=== PATIENT | female | born 1935 | race Two or more races ===

== ENCOUNTER → 2016-08-26 | Outpatient (CLI) | payer MEDICARE, OTHER ==
[~2016-08-26] VITALS: Ht 147.3 cm; Wt 72.0 kg
[~2016-08-26] MED LIST: AMIO200T44 PO; AMLO-511 PO; APIX2.5T PO; ATOR10TA84 PO; CHOL2000 PO; DABI75CA3 PO; DONE10TA PO; FERR-89 PO; LEVO75 PO; OMEP20TA86 PO; SERT50TA12 PO; SOLI5 PO
[2016-08-26 09:53] VITALS: BP 120/68
== END | disposition home or self-care (01) ==
LOC: SRCNTR 09:41
PROVIDERS: ATTEND Internal Medicine Cardiovascular Disease
DX: I12.9 Hypertensive chronic kidney disease with stage 1 through stage 4 chronic kidney disease, or unspecified chronic kidney disease (principal); N18.3 Chronic kidney disease, stage 3 (moderate); I48.0 Paroxysmal atrial fibrillation; E78.5 Hyperlipidemia, unspecified; G24.01 Drug induced subacute dyskinesia
CPT/HCPCS: G0463

== ENCOUNTER → 2016-10-25 | Outpatient (CLI) | payer MEDICARE, OTHER ==
[~2016-10-25] VITALS: Ht 147.3 cm; Wt 71.0 kg
[~2016-10-25] MED LIST changes: -FERR-89 PO; +FERS325 PO
[2016-10-25 11:06] VITALS: BP 100/55
== END | disposition home or self-care (01) ==
LOC: SRCNTR 10:39
PROVIDERS: ATTEND Internal Medicine Cardiovascular Disease
DX: I12.9 Hypertensive chronic kidney disease with stage 1 through stage 4 chronic kidney disease, or unspecified chronic kidney disease (principal); N18.3 Chronic kidney disease, stage 3 (moderate); I48.0 Paroxysmal atrial fibrillation; E78.5 Hyperlipidemia, unspecified; G24.01 Drug induced subacute dyskinesia
CPT/HCPCS: 93005; G0463

== ENCOUNTER 2017-06-19 07:28 | Inpatient (IN) | payer MEDICARE, OTHER ==
[~2017-06-19] VITALS: Ht 154.9 cm; Wt 67.1 kg
[~2017-06-19 07:28] MED LIST changes: -DABI75CA3 PO; -DONE10TA PO; +DONE10TA8 PO; +FERR-89 PO; -FERS325 PO; +OMEP20TA25 PO; -OMEP20TA86 PO
[2017-06-19] MEDS ORDERED: ATOR10TA69 PO (07:38)
[2017-06-19] MEDS ORDERED: PANT40TA PO (07:38)
[2017-06-19] MEDS ORDERED: MEMA7CAP PO (07:38)
[2017-06-19] MEDS ORDERED: FUROSEMIDE 40 MG/4 ML VIAL IVP ONE (08:45)
[2017-06-19 08:56] LABS: ANION GAP 10 mmol/L (8-16); CALCIUM, TOTAL 8.4 mg/dL (8.8-10.5); CARBON DIOXIDE 26 mmol/L (22-29); CHLORIDE 104 mmol/L (98-107); CREATININE 1.28 mg/dL (0.60-1.30); GLOMERULAR FILTR. RATE CALC 40 mL/min (>60); GLUCOSE,RANDOM 129 mg/dL (70-110); POTASSIUM 4.1 mmol/L (3.5-5.1); SODIUM SERUM 140 mmol/L (136-145); UREA NITROGEN, BLOOD 28 mg/dL (7-18)
[2017-06-19 08:56] LABS: INR 1.1 (0.9-1.1); PROTHROMBIN TIME 11.7 SEC (9.4-11.6)
[2017-06-19 09:03] LABS: ALANINE AMINOTRANSFERASE 14 U/L (12-78); ALBUMIN 2.4 g/dL (3.4-5.0); ALKALINE PHOSPHATASE 107 U/L (46-116); ASPARTATE AMINOTRANSFERASE 26 U/L (15-37); BILIRUBIN,TOTAL 0.7 mg/dL (0.1-1.0); CREATINE KINASE, TOTAL 24 U/L (26-192); TOTAL PROTEIN, SERUM 6.5 g/dL (6.4-8.2)
[2017-06-19 09:05] LABS: EOSINOPHILS % (AUTO) 0.6 % (1.0-6.0); HEMATOCRIT 31.4 % (36-46); HEMOGLOBIN 10.6 g/dL (12.0-16.0); LYMPHOCYTES # (AUTO) 0.4 K/uL (1.0-4.8); LYMPHOCYTES % (AUTO) 2.9 % (22.0-44.0); MEAN CORPUSCULAR HEMOGLOBIN 34.2 pg (26.0-34.0); MEAN CORPUSCULAR HGB CONC 33.8 G/dL (31.0-37.0); MEAN CORPUSCULAR VOLUME 101 fL (80-100); MONOCYTES # (AUTO) 0.3 K/uL (0.1-1.0); MONOCYTES % (AUTO) 2.7 % (2.0-9.0); NEUTROPHILS # (AUTO) 11.9 K/uL (1.8-7.7); PLATELET COUNT (AUTO) 332 K/uL (150-450); RED CELL DISTRIBUTION WIDTH 15.7 % (11.5-14.5)
[2017-06-19 09:09] LABS: NEUTROPHILS % (AUTO) 93.8 % (40.0-70.0)
[2017-06-19] MEDS: NITROGLYCERIN 0.4 MG SUBLINGUAL TABLET #25 SL ONE ×2 (09:09→09:45)
[2017-06-19] MEDS: NITROGLYCERIN 2% (1 GM=INCH) PACKET TP ONE ×2 (09:10→09:45)
[2017-06-19 09:17] LABS: INFLUENZA TYPE A NEGATIVE FOR TYPE A (NEGATIVE); INFLUENZA TYPE B NEGATIVE FOR TYPE B (NEGATIVE)
[2017-06-19 09:38] LABS: B-TYPE NATRIURETIC PEPTIDE 797 pg/mL (0-100)
[2017-06-19] MEDS ORDERED: 0.9% SODIUM CHLORIDE 10 ML SYRINGE IVP PRN (10:15)
[2017-06-19] MEDS ORDERED: ONDANSETRON HCL 4 MG/2 ML VIAL IVP PRN ×2 (10:15→15:00)
[2017-06-19] MEDS ORDERED: ACETAMINOPHEN 325 MG TABLET PO PRN ×2 (10:15→15:00)
[2017-06-19] MEDS ORDERED: AZITHROMYCIN 500 MG/NS 250 ML IV ONE (10:15)
[2017-06-19] MEDS ORDERED: CefTRIAXone 1 GM/DEXTROSE 50 ML IV ONE (10:15)
[2017-06-19] MEDS ORDERED: ACETAMINOPHEN 325 MG TABLET PO ONE (10:30)
[2017-06-19] MEDS ORDERED: IOVERSOL 350 MG/ML 100 ML VIAL ONE (10:49)
[2017-06-19 11:11] LABS: APPEARANCE,URINE CLEAR (CLEAR); BILIRUBIN,URINE NEGATIVE (NEGATIVE); GLUCOSE, URINE (UA) NEGATIVE (NEGATIVE); KETONES,URINE NEGATIVE (NEGATIVE); LEUKOCYTE ESTERASE ,URINE NEGATIVE (NEGATIVE); NITRATE,URINE NEGATIVE (NEGATIVE); OCCULT BLOOD,URINE NEGATIVE (NEGATIVE); PH,URINE 6.5 (5.0-8.0); PROTEIN,URINE NEGATIVE (NEGATIVE)
[2017-06-19 12:45] LABS: ABG A-A DIFF O2 451.1 mmHg (10-20.0); ABG BASE EXCESS 0.8 mmol/L (-2.0-3.0); ABG CARBOXYHEMOGLOBIN 1.3 % (0.0-1.5); ABG HCO3 25.4 mmol/L (22.0-26.0); ABG METHEMOGLOBIN 0.3 % (0.0-1.5); ABG OXYGEN CONTENT 15.1 mL/dL (15.0-23.0); ABG OXYGEN SATURATION 99.7 % (95.0-98.0); ABG OXYHEMOGLOBIN 98.1 % (94.0-100.0); ABG PCO2 38 mmHg (35-45); ABG PH 7.434 (7.35-7.450); ABG TOTAL HEMOGLOBIN 10.6 G/dL (12.0-18.0); O2 DEVICE,BLOOD GAS NON REBREATHER (ROOM AIR); PO2, ARTERIAL BG 221.3 mmHg (71.0-79.0); SITE, BLOOD GAS RT RADIAL; SOURCE, BLOOD GAS ARTERIAL; TEMPERATURE, FAHRENHEIT, BG 100.3 FAHREN (96.0-98.6)
[2017-06-19 14:53] VITALS: BP 116/63
[2017-06-19] MEDS ORDERED: BISACODYL 10 MG RECTAL RECTAL SUPPOSITORY PR PRN (15:00)
[2017-06-19] MEDS ORDERED: ZOLPIDEM TARTRATE 5 MG TABLET PO PRN (15:00)
[2017-06-19] MEDS ORDERED: HYDROCODONE/ACETAMINOPHEN 5-325 MG TABLET PO PRN (15:00)
[2017-06-19] MEDS ORDERED: MAGNESIUM HYDROXIDE SUSPENSION 30 ML UDCUP PO PRN (15:00)
[2017-06-19] MEDS ORDERED: MORPHINE SULFATE 2 MG/ML SYRINGE IVP PRN (15:00)
[2017-06-19 19:42] VITALS: BP 133/63
[2017-06-19] MEDS: DOCUSATE SODIUM 100 MG CAPSULE PO SCH (20:34)
[2017-06-19] MEDS: APIXABAN 2.5 MG TABLET PO SCH (20:34)
[2017-06-19] MEDS: FUROSEMIDE 20 MG/2 ML VIAL IVP SCH (20:34)
[2017-06-19 23:47] VITALS: BP 121/48
[2017-06-20 04:43] VITALS: BP 101/54
[2017-06-20] MEDS: LEVOTHYROXINE SODIUM 75 MCG TABLET PO SCH (06:02)
[2017-06-20 07:27] VITALS: BP 114/49
[2017-06-20 07:58] LABS: EOSINOPHILS % (AUTO) 1.3 % (1.0-6.0); HEMATOCRIT 30.9 % (36-46); HEMOGLOBIN 10.1 g/dL (12.0-16.0); LYMPHOCYTES # (AUTO) 0.7 K/uL (1.0-4.8); MEAN CORPUSCULAR HEMOGLOBIN 33.5 pg (26.0-34.0); MEAN CORPUSCULAR HGB CONC 32.7 G/dL (31.0-37.0); MEAN CORPUSCULAR VOLUME 103 fL (80-100); MONOCYTES # (AUTO) 0.3 K/uL (0.1-1.0); MONOCYTES % (AUTO) 2.2 % (2.0-9.0); NEUTROPHILS # (AUTO) 11.2 K/uL (1.8-7.7); PLATELET COUNT (AUTO) 318 K/uL (150-450); RED BLOOD CELL COUNT(AUTO) 3.01 MIL/uL (4.00-5.20); RED CELL DISTRIBUTION WIDTH 15.5 % (11.5-14.5)
[2017-06-20 07:59] LABS: NEUTROPHILS % (AUTO) 90.5 % (40.0-70.0)
[2017-06-20 08:22] LABS: BILIRUBIN,TOTAL 0.6 mg/dL (0.1-1.0); CALCIUM, TOTAL 8.5 mg/dL (8.8-10.5); CREATININE 1.32 mg/dL (0.60-1.30); POTASSIUM 3.8 mmol/L (3.5-5.1); TOTAL PROTEIN, SERUM 5.9 g/dL (6.4-8.2)
[2017-06-20] MEDS: DOCUSATE SODIUM 100 MG CAPSULE PO SCH ×2 (08:58→20:51)
[2017-06-20] MEDS: DONEPEZIL HCL 10 MG TABLET PO SCH (08:58)
[2017-06-20] MEDS: PANTOPRAZOLE SODIUM 40 MG DR TABLET PO SCH (08:58)
[2017-06-20] MEDS: SERTRALINE HCL 50 MG TABLET PO SCH (08:58)
[2017-06-20] MEDS: CHOLECALCIFEROL (VIT D3) 2,000 UNITS TABLET PO SCH (08:58)
[2017-06-20] MEDS: APIXABAN 2.5 MG TABLET PO SCH ×2 (08:58→20:51)
[2017-06-20] MEDS: ASPIRIN 81 MG EC TABLET PO SCH (08:58)
[2017-06-20] MEDS: FUROSEMIDE 20 MG/2 ML VIAL IVP SCH ×2 (08:59→20:51)
[2017-06-20] MEDS: ATORVASTATIN CALCIUM 10 MG TABLET PO SCH (08:59)
[2017-06-20] MEDS: AMIODARONE HCL 200 MG TABLET PO SCH (08:59)
[2017-06-20] MEDS ORDERED: ATORVASTATIN CALCIUM 10 MG TABLET PO SCH (09:00)
[2017-06-20] MEDS ORDERED: MEMANTINE HCL 7 MG PO SCH (09:00)
[2017-06-20] MEDS ORDERED: LISINOPRIL 5 MG TABLET PO SCH (09:00)
[2017-06-20] MEDS ORDERED: *CLINICAL-LEVOFLOXACIN ORAL DOSING CLINICAL ONE (09:30)
[2017-06-20] MEDS: OXYGEN THERAPY IH SCH ×3 (09:53→20:51)
[2017-06-20] MEDS: LEVOFLOXACIN 750 MG/D5% WATER 150 ML IV SCH (10:43)
[2017-06-20 11:15] VITALS: BP 106/50
[2017-06-20 15:59] VITALS: BP 104/51
[2017-06-20 19:36] VITALS: BP 107/50
[2017-06-20 23:25] VITALS: BP 107/57
[2017-06-21 04:56] VITALS: BP 111/77
[2017-06-21] MEDS: LEVOTHYROXINE SODIUM 75 MCG TABLET PO SCH (06:04)
[2017-06-21 07:40] VITALS: BP 106/43
[2017-06-21] MEDS: OXYGEN THERAPY IH SCH ×4 (08:00→20:04)
[2017-06-21] MEDS: AMIODARONE HCL 200 MG TABLET PO SCH (08:20)
[2017-06-21] MEDS: FUROSEMIDE 20 MG/2 ML VIAL IVP SCH ×2 (08:20→20:03)
[2017-06-21] MEDS: DONEPEZIL HCL 10 MG TABLET PO SCH (08:20)
[2017-06-21] MEDS: DOCUSATE SODIUM 100 MG CAPSULE PO SCH ×2 (08:20→20:04)
[2017-06-21] MEDS: PANTOPRAZOLE SODIUM 40 MG DR TABLET PO SCH (08:20)
[2017-06-21] MEDS: ASPIRIN 81 MG EC TABLET PO SCH (08:20)
[2017-06-21] MEDS: APIXABAN 2.5 MG TABLET PO SCH ×2 (08:20→20:04)
[2017-06-21] MEDS: SERTRALINE HCL 50 MG TABLET PO SCH (08:20)
[2017-06-21] MEDS: ATORVASTATIN CALCIUM 10 MG TABLET PO SCH (08:20)
[2017-06-21] MEDS: CHOLECALCIFEROL (VIT D3) 2,000 UNITS TABLET PO SCH (08:20)
[2017-06-21 09:28] LABS: CALCIUM, TOTAL 8.2 mg/dL (8.8-10.5); CREATININE 1.39 mg/dL (0.60-1.30); POTASSIUM 3.6 mmol/L (3.5-5.1)
[2017-06-21] MEDS ORDERED: LEVALBUTEROL HCL 0.63 MG/3 ML NEB SOLUTION NEB PRN (09:30)
[2017-06-21 09:34] LABS: ABG A-A DIFF O2 481.5 mmHg (10-20.0); ABG BASE EXCESS 1.6 mmol/L (-2.0-3.0); ABG CARBOXYHEMOGLOBIN 0.8 % (0.0-1.5); ABG HCO3 25.4 mmol/L (22.0-26.0); ABG METHEMOGLOBIN 0.2 % (0.0-1.5); ABG OXYGEN CONTENT 12.9 mL/dL (15.0-23.0); ABG OXYHEMOGLOBIN 79.1 % (94.0-100.0); ABG PCO2 42 mmHg (35-45); ABG PH 7.413 (7.35-7.450); ABG TOTAL HEMOGLOBIN 11.6 G/dL (12.0-18.0); PO2, ARTERIAL BG 45.3 mmHg (71.0-79.0); SOURCE, BLOOD GAS ARTERIAL; TEMPERATURE, FAHRENHEIT, BG 98.3 FAHREN (96.0-98.6)
[2017-06-21 09:35] LABS: ABG OXYGEN SATURATION 79.9 % (95.0-98.0); O2 DEVICE,BLOOD GAS NON REBREATHER (ROOM AIR); SITE, BLOOD GAS RT RADIAL
[2017-06-21 11:14] VITALS: BP 112/58
[2017-06-21 11:23] LABS: ABG A-A DIFF O2 584.7 mmHg (10-20.0); ABG BASE EXCESS 2.3 mmol/L (-2.0-3.0); ABG CARBOXYHEMOGLOBIN 0.6 % (0.0-1.5); ABG HCO3 26.5 mmol/L (22.0-26.0); ABG METHEMOGLOBIN 0.3 % (0.0-1.5); ABG OXYGEN CONTENT 15.2 mL/dL (15.0-23.0); ABG OXYGEN SATURATION 97.4 % (95.0-98.0); ABG OXYHEMOGLOBIN 96.5 % (94.0-100.0); ABG PCO2 38 mmHg (35-45); ABG PH 7.458 (7.35-7.450); ABG TOTAL HEMOGLOBIN 11.1 G/dL (12.0-18.0); PO2, ARTERIAL BG 91.6 mmHg (71.0-79.0); SOURCE, BLOOD GAS ARTERIAL; TEMPERATURE, FAHRENHEIT, BG 97.9 FAHREN (96.0-98.6)
[2017-06-21 11:24] LABS: O2 DEVICE,BLOOD GAS BIPAP (ROOM AIR); SITE, BLOOD GAS RT RADIAL
[2017-06-21 16:21] VITALS: BP 101/60
[2017-06-21 20:02] VITALS: BP 138/63
[2017-06-21 20:06] VITALS: BP 113/57
[2017-06-22 03:51] VITALS: BP 104/50
[2017-06-22] MEDS: LEVOTHYROXINE SODIUM 75 MCG TABLET PO SCH (06:35)
[2017-06-22 07:15] VITALS: BP 132/53
[2017-06-22] MEDS: OXYGEN THERAPY IH SCH ×4 (08:00→19:54)
[2017-06-22 08:26] LABS: BASOPHILS % (AUTO) 0.3 % (0.0-2.0); HEMATOCRIT 29.8 % (36-46); HEMOGLOBIN 9.8 g/dL (12.0-16.0); LYMPHOCYTES # (AUTO) 0.5 K/uL (1.0-4.8); LYMPHOCYTES % (AUTO) 4.4 % (22.0-44.0); MEAN CORPUSCULAR HEMOGLOBIN 33.4 pg (26.0-34.0); MEAN CORPUSCULAR HGB CONC 32.8 G/dL (31.0-37.0); MEAN CORPUSCULAR VOLUME 102 fL (80-100); MONOCYTES # (AUTO) 0.3 K/uL (0.1-1.0); MONOCYTES % (AUTO) 2.9 % (2.0-9.0); NEUTROPHILS # (AUTO) 10.3 K/uL (1.8-7.7); PLATELET COUNT (AUTO) 338 K/uL (150-450); RED BLOOD CELL COUNT(AUTO) 2.93 MIL/uL (4.00-5.20)
[2017-06-22] MEDS: FUROSEMIDE 20 MG/2 ML VIAL IVP SCH ×2 (08:29→21:14)
[2017-06-22 08:30] LABS: NEUTROPHILS % (AUTO) 89.4 % (40.0-70.0)
[2017-06-22] MEDS: PANTOPRAZOLE SODIUM 40 MG DR TABLET PO SCH (08:30)
[2017-06-22] MEDS: DOCUSATE SODIUM 100 MG CAPSULE PO SCH ×2 (08:30→21:13)
[2017-06-22] MEDS: ATORVASTATIN CALCIUM 10 MG TABLET PO SCH (08:30)
[2017-06-22] MEDS: AMIODARONE HCL 200 MG TABLET PO SCH (08:30)
[2017-06-22] MEDS: ASPIRIN 81 MG EC TABLET PO SCH (08:30)
[2017-06-22 08:42] LABS: ANION GAP 7 mmol/L (8-16); CALCIUM, TOTAL 8.4 mg/dL (8.8-10.5); CARBON DIOXIDE 31 mmol/L (22-29); CHLORIDE 101 mmol/L (98-107); CREATINE KINASE, TOTAL 15 U/L (26-192); CREATININE 1.37 mg/dL (0.60-1.30); GLOMERULAR FILTR. RATE CALC 37 mL/min (>60); GLUCOSE,RANDOM 89 mg/dL (70-110); PLATELET MORPHOLOGY COMMENT GIANT PLTS PRESENT; POTASSIUM 3.9 mmol/L (3.5-5.1); SODIUM SERUM 139 mmol/L (136-145); UREA NITROGEN, BLOOD 34 mg/dL (7-18)
[2017-06-22 08:54] LABS: B-TYPE NATRIURETIC PEPTIDE 332 pg/mL (0-100)
[2017-06-22] MEDS: LEVOFLOXACIN 750 MG/D5% WATER 150 ML IV SCH (10:11)
[2017-06-22] MEDS: SERTRALINE HCL 50 MG TABLET PO SCH (10:43)
[2017-06-22] MEDS: APIXABAN 2.5 MG TABLET PO SCH ×2 (10:43→21:22)
[2017-06-22] MEDS: CHOLECALCIFEROL (VIT D3) 2,000 UNITS TABLET PO SCH (10:43)
[2017-06-22] MEDS: DONEPEZIL HCL 10 MG TABLET PO SCH (10:44)
[2017-06-22 11:34] VITALS: BP 113/55
[2017-06-22 16:00] VITALS: BP 111/51
[2017-06-22 22:35] VITALS: BP 101/50
[2017-06-23] VITALS: BP 102/47
[2017-06-23 04:00] VITALS: BP 101/49
[2017-06-23 05:18] LABS: BASOPHILS # (AUTO) 0.01 K/uL (0.00-0.20); BASOPHILS % (AUTO) 0.1 % (0.0-2.0); EOSINOPHILS # (AUTO) 0.35 K/uL (0.00-0.70); EOSINOPHILS % (AUTO) 3.69 % (1.0-6.0); HEMATOCRIT 30.1 % (36-46); HEMOGLOBIN 9.7 g/dL (12.0-16.0); LYMPHOCYTES # (AUTO) 0.4 K/uL (1.0-4.8); LYMPHOCYTES % (AUTO) 4.5 % (22.0-44.0); MEAN CORPUSCULAR HEMOGLOBIN 32.6 pg (26.0-34.0); MEAN CORPUSCULAR HGB CONC 32.2 G/dL (31.0-37.0); MEAN CORPUSCULAR VOLUME 101 fL (80-100); MONOCYTES # (AUTO) 0.3 K/uL (0.1-1.0); MONOCYTES % (AUTO) 3.4 % (2.0-9.0); NEUTROPHILS # (AUTO) 8.5 K/uL (1.8-7.7); PLATELET COUNT (AUTO) 337 K/uL (150-450); RED BLOOD CELL COUNT(AUTO) 2.98 MIL/uL (4.00-5.20); RED CELL DISTRIBUTION WIDTH 16.1 % (11.5-14.5)
[2017-06-23 05:22] LABS: NEUTROPHILS % (AUTO) 88.3 % (40.0-70.0)
[2017-06-23 05:26] LABS: ALBUMIN 1.7 g/dL (3.4-5.0); BILIRUBIN,TOTAL 0.6 mg/dL (0.1-1.0); CALCIUM, TOTAL 8.4 mg/dL (8.8-10.5); CREATININE 1.34 mg/dL (0.60-1.30); POTASSIUM 3.9 mmol/L (3.5-5.1); TOTAL PROTEIN, SERUM 5.7 g/dL (6.4-8.2)
[2017-06-23 06:38] LABS: PLATELET MORPHOLOGY COMMENT GIANT PLTS PRESENT
[2017-06-23] MEDS: LEVOTHYROXINE SODIUM 75 MCG TABLET PO SCH (06:47)
[2017-06-23 08:00] VITALS: BP 106/50
[2017-06-23] MEDS: FUROSEMIDE 20 MG/2 ML VIAL IVP SCH ×2 (08:56→21:38)
[2017-06-23] MEDS: DOCUSATE SODIUM 100 MG CAPSULE PO SCH ×2 (08:57→21:38)
[2017-06-23] MEDS: APIXABAN 2.5 MG TABLET PO SCH ×2 (08:57→21:38)
[2017-06-23] MEDS: SERTRALINE HCL 50 MG TABLET PO SCH (08:57)
[2017-06-23] MEDS: CHOLECALCIFEROL (VIT D3) 2,000 UNITS TABLET PO SCH (08:57)
[2017-06-23] MEDS: DONEPEZIL HCL 10 MG TABLET PO SCH (08:57)
[2017-06-23] MEDS: ASPIRIN 81 MG EC TABLET PO SCH (08:57)
[2017-06-23] MEDS: AMIODARONE HCL 200 MG TABLET PO SCH (08:58)
[2017-06-23] MEDS: PANTOPRAZOLE SODIUM 40 MG DR TABLET PO SCH (08:58)
[2017-06-23] MEDS: OXYGEN THERAPY IH SCH ×4 (08:58→21:39)
[2017-06-23] MEDS: ATORVASTATIN CALCIUM 10 MG TABLET PO SCH (09:00)
[2017-06-23 09:15] LABS: ABG A-A DIFF O2 454.9 mmHg (10-20.0); ABG BASE EXCESS 7.7 mmol/L (-2.0-3.0); ABG HCO3 30.4 mmol/L (22.0-26.0); ABG METHEMOGLOBIN 0.2 % (0.0-1.5); ABG OXYGEN CONTENT 13.5 mL/dL (15.0-23.0); ABG OXYGEN SATURATION 91.2 % (95.0-98.0); ABG OXYHEMOGLOBIN 90.1 % (94.0-100.0); ABG PCO2 51 mmHg (35-45); ABG PH 7.422 (7.35-7.450); ABG TOTAL HEMOGLOBIN 10.6 G/dL (12.0-18.0); O2 DEVICE,BLOOD GAS BIPAP (ROOM AIR); PO2, ARTERIAL BG 61.7 mmHg (71.0-79.0); SITE, BLOOD GAS RT BRACHIAL; SOURCE, BLOOD GAS ARTERIAL; TEMPERATURE, FAHRENHEIT, BG 99.4 FAHREN (96.0-98.6)
[2017-06-23 12:00] VITALS: BP 101/51
[2017-06-23] MEDS ORDERED: SODIUM CHLORIDE 0.9% 500 ML IV ONE (14:27)
[2017-06-23 16:00] VITALS: BP 111/53
[2017-06-23 20:00] VITALS: BP 105/50
[2017-06-24] VITALS (8 sets, daily range): BP systolic 99–120; BP diastolic 40–62
[2017-06-24 05:57] LABS: BASOPHILS % (AUTO) 0.7 % (0.0-2.0); EOSINOPHILS % (AUTO) 4.3 % (1.0-6.0); HEMATOCRIT 30.5 % (36-46); LYMPHOCYTES # (AUTO) 0.7 K/uL (1.0-4.8); LYMPHOCYTES % (AUTO) 6.8 % (22.0-44.0); MEAN CORPUSCULAR HGB CONC 32.7 G/dL (31.0-37.0); MEAN CORPUSCULAR VOLUME 101 fL (80-100); MONOCYTES # (AUTO) 0.3 K/uL (0.1-1.0); MONOCYTES % (AUTO) 3.2 % (2.0-9.0); PLATELET COUNT (AUTO) 366 K/uL (150-450); RED BLOOD CELL COUNT(AUTO) 3.02 MIL/uL (4.00-5.20); RED CELL DISTRIBUTION WIDTH 15.9 % (11.5-14.5)
[2017-06-24 06:21] LABS: CALCIUM, TOTAL 8.6 mg/dL (8.8-10.5); CREATININE 1.4 mg/dL (0.60-1.30); POTASSIUM 3.9 mmol/L (3.5-5.1)
[2017-06-24] MEDS: LEVOTHYROXINE SODIUM 75 MCG TABLET PO SCH (06:21)
[2017-06-24] MEDS: OXYGEN THERAPY IH SCH ×4 (07:37→21:16)
[2017-06-24] MEDS: ASPIRIN 81 MG EC TABLET PO SCH (08:04)
[2017-06-24] MEDS: DOCUSATE SODIUM 100 MG CAPSULE PO SCH ×2 (08:04→21:16)
[2017-06-24] MEDS: FUROSEMIDE 20 MG/2 ML VIAL IVP SCH ×2 (08:04→21:16)
[2017-06-24] MEDS: DONEPEZIL HCL 10 MG TABLET PO SCH (08:04)
[2017-06-24] MEDS: CHOLECALCIFEROL (VIT D3) 2,000 UNITS TABLET PO SCH (08:05)
[2017-06-24] MEDS: AMIODARONE HCL 200 MG TABLET PO SCH (08:05)
[2017-06-24] MEDS: PANTOPRAZOLE SODIUM 40 MG DR TABLET PO SCH (08:05)
[2017-06-24] MEDS: ATORVASTATIN CALCIUM 10 MG TABLET PO SCH (08:05)
[2017-06-24] MEDS: SERTRALINE HCL 50 MG TABLET PO SCH (08:05)
[2017-06-24] MEDS: APIXABAN 2.5 MG TABLET PO SCH ×2 (08:06→21:16)
[2017-06-24] MEDS: LEVOFLOXACIN 750 MG/D5% WATER 150 ML IV SCH (10:08)
[2017-06-24 18:04] LABS: CREATININE,URINE RANDOM 76.6 mg/dL (30.0-125.0)
[2017-06-25 04:40] VITALS: BP 104/53
[2017-06-25] MEDS: LEVOTHYROXINE SODIUM 75 MCG TABLET PO SCH (05:07)
[2017-06-25 07:16] VITALS: BP 114/46
[2017-06-25] MEDS: OXYGEN THERAPY IH SCH ×4 (08:00→20:02)
[2017-06-25 08:59] LABS: CALCIUM, TOTAL 8.7 mg/dL (8.8-10.5); CREATININE 1.39 mg/dL (0.60-1.30)
[2017-06-25] MEDS: ASPIRIN 81 MG EC TABLET PO SCH (10:00)
[2017-06-25] MEDS: PANTOPRAZOLE SODIUM 40 MG DR TABLET PO SCH (10:00)
[2017-06-25] MEDS: DOCUSATE SODIUM 100 MG CAPSULE PO SCH ×2 (10:00→20:01)
[2017-06-25] MEDS: DONEPEZIL HCL 10 MG TABLET PO SCH (10:00)
[2017-06-25] MEDS: APIXABAN 2.5 MG TABLET PO SCH ×2 (10:00→20:01)
[2017-06-25] MEDS: AMIODARONE HCL 200 MG TABLET PO SCH (10:00)
[2017-06-25] MEDS: ATORVASTATIN CALCIUM 10 MG TABLET PO SCH (10:00)
[2017-06-25] MEDS: FUROSEMIDE 20 MG/2 ML VIAL IVP SCH ×2 (10:01→20:03)
[2017-06-25] MEDS: SERTRALINE HCL 50 MG TABLET PO SCH (10:01)
[2017-06-25] MEDS: CHOLECALCIFEROL (VIT D3) 2,000 UNITS TABLET PO SCH (10:01)
[2017-06-25 11:19] VITALS: BP 108/43
[2017-06-25 15:06] VITALS: BP 117/50
[2017-06-25] MEDS: MethylPREDNISolone SOD SUCC 40 MG/ML VIAL IVP SCH (18:28)
[2017-06-25 19:47] VITALS: BP 109/49
[2017-06-26] MEDS: MethylPREDNISolone SOD SUCC 40 MG/ML VIAL IVP SCH ×2 (00:33→05:31)
[2017-06-26 00:42] VITALS: BP 127/58
[2017-06-26 05:06] VITALS: BP 123/68
[2017-06-26] MEDS: LEVOTHYROXINE SODIUM 75 MCG TABLET PO SCH (05:31)
[2017-06-26 07:48] LABS: CALCIUM, TOTAL 8.7 mg/dL (8.8-10.5); CREATININE 1.42 mg/dL (0.60-1.30); MAGNESIUM 2.5 mg/dL (1.80-2.40); PHOSPHORUS 3.1 mg/dL (2.5-4.9); POTASSIUM 4.9 mmol/L (3.5-5.1)
[2017-06-26] MEDS: OXYGEN THERAPY IH SCH ×4 (08:00→20:57)
[2017-06-26 08:06] VITALS: BP 108/57
[2017-06-26] MEDS: ASPIRIN 81 MG EC TABLET PO SCH (10:17)
[2017-06-26] MEDS: FUROSEMIDE 20 MG/2 ML VIAL IVP SCH (10:17)
[2017-06-26] MEDS: ATORVASTATIN CALCIUM 10 MG TABLET PO SCH (10:17)
[2017-06-26] MEDS: LEVOFLOXACIN 750 MG/D5% WATER 150 ML IV SCH (10:17)
[2017-06-26] MEDS: PANTOPRAZOLE SODIUM 40 MG DR TABLET PO SCH (10:17)
[2017-06-26] MEDS: APIXABAN 2.5 MG TABLET PO SCH (10:17)
[2017-06-26] MEDS: CHOLECALCIFEROL (VIT D3) 2,000 UNITS TABLET PO SCH (10:17)
[2017-06-26] MEDS ORDERED: LORazepam 2 MG/ML VIAL IVP PRN (11:00)
[2017-06-26] MEDS ORDERED: MORPHINE SULFATE 2 MG/ML SYRINGE IVP PRN (11:00)
[2017-06-26 11:19] VITALS: BP 111/42
[2017-06-26 16:06] VITALS: BP 120/50
[2017-06-26] MEDS ORDERED: GLYCOPYRROLATE 0.2 MG/ML VIAL IVP PRN (16:30)
[2017-06-26] MEDS: MORPHINE SULFATE 2 MG/ML SYRINGE IVP SCH ×3 (16:59→23:56)
[2017-06-26 19:29] VITALS: BP 108/43
[2017-06-27] VITALS (7 sets, daily range): BP systolic 91–103; BP diastolic 35–51
[2017-06-27] MEDS: MORPHINE SULFATE 2 MG/ML SYRINGE IVP SCH ×6 (03:46→23:36)
[2017-06-27] MEDS: OXYGEN THERAPY IH SCH (08:43)
[2017-06-27] MEDS ORDERED: AMLO2.5T PO (12:31)
[2017-06-27] MEDS: ACETAMINOPHEN 650 MG RECTAL SUPPOSITORY PR PRN ×2 (13:28→16:55)
[2017-06-28] MEDS: MORPHINE SULFATE 2 MG/ML SYRINGE IVP SCH ×2 (03:39→08:28)
[2017-06-28 04:35] VITALS: BP 98/37
[2017-06-28 08:04] VITALS: BP 90/35
[2017-06-28] MEDS: OXYGEN THERAPY IH SCH (08:29)
== END 2017-06-28 10:35 | disposition expired | DRG 871 ==
LOC: EMS 07:31 → AHU 10:38 → 5N 10:38 → ICU 06-22 16:20 → 5S 06-24 17:25 → 6N 06-26 15:27
PROVIDERS: ADMIT Internal Medicine; ATTEND Internal Medicine
PROC: 5A09457 Assistance with Respiratory Ventilation, 24-96 Consecutive Hours, Continuous Positive Airway Pressure (ICD-10-PCS; principal; 2017-06-19)
DX: A41.9 Sepsis, unspecified organism (principal); I50.31 Acute diastolic (congestive) heart failure; J96.01 Acute respiratory failure with hypoxia; E43 Unspecified severe protein-calorie malnutrition; J18.9 Pneumonia, unspecified organism; I27.20 Pulmonary hypertension, unspecified; N17.9 Acute kidney failure, unspecified; I13.0 Hypertensive heart and chronic kidney disease with heart failure and stage 1 through stage 4 chronic kidney disease, or unspecified chronic kidney disease; I48.0 Paroxysmal atrial fibrillation; R13.10 Dysphagia, unspecified; Z66 Do not resuscitate; Z51.5 Encounter for palliative care; N18.3 Chronic kidney disease, stage 3 (moderate); F25.9 Schizoaffective disorder, unspecified; E03.9 Hypothyroidism, unspecified; E78.5 Hyperlipidemia, unspecified; I25.10 Atherosclerotic heart disease of native coronary artery without angina pectoris; G24.01 Drug induced subacute dyskinesia; Z68.28 Body mass index [BMI] 28.0-28.9, adult; N26.1 Atrophy of kidney (terminal); Z90.49 Acquired absence of other specified parts of digestive tract; Z82.49 Family history of ischemic heart disease and other diseases of the circulatory system; Z79.899 Other long term (current) drug therapy; Z79.01 Long term (current) use of anticoagulants
CPT/HCPCS: 71275; 76770; 82570; 82805; 83605; 83735; 84100; 84145; 84300; 84540; 87040; 87804; 93005; 93306; 94660; 96365; 96375; 99285; J0456; J0696; J1940; J1956; J2060; J2270; J2920; J7040